=== PATIENT | female | born 1985 | race American Indian/Alaskan Native ===

== ENCOUNTER 2018-03-30 10:16 | Emergency (ER) | payer SELFPAY ==
[2018-03-30] MEDS ORDERED: NACL 0.9% 1000 ML 1,000 ML IV ONE (11:24)
[2018-03-30] MEDS ORDERED: VITAMIN B-1 100 MG, FOLVITE 1 MG, INFUVITE 10 ML in NACL 0.9% 1000 ML 1,000 ML IV ONE (11:24)
[2018-03-30] MEDS ORDERED: BENADRYL IV ONE (11:25)
[2018-03-30] MEDS ORDERED: REGLAN IV ONE (11:25)
[2018-03-30] MEDS ORDERED: DILAUDID IV ONE ×2 (11:25→14:45)
[2018-03-30] MEDS ORDERED: ZOFRAN IV ONE ×2 (11:25→14:45)
[2018-03-30] MEDS ORDERED: PEPCID IV ONE (11:25)
--- NOTE | 2018-03-30 11:46 | Emergency Department Report ---
ED Abdominal Pain HPI - General Chief Complaint: Abdominal Pain Stated Complaint: BACK/ABD PAIN Source: patient Mode of arrival: Wheelchair Limitations: No Limitations - History of Present Illness Initial Comments: 33-year-old female with past medical history of pancreatitis presents to the hospital complains of epigastric pain radiating to the back with nausea, vomiting, and by mouth intolerance. Some symptoms in the past with pancreatitis. Pain described as sharp, aching, rated 8/10 in intensity, intermittent, and worse with palpation. No alleviating symptoms. Patient states to have vomitus is yellow and denies hematemesis, coffee-ground emesis, diarrhea, melena, or fever. Patient sees drink alcohol daily up until 2 days ago. She denies current or previous history of alcohol withdrawal tremors or seizures. No previous abdominal surgeries reported. Last exacerbation of pancreatitis was 2 years ago. Patient drinks about 3 beers and a half a pint of liquor daily. She does not have a primary care doctor. Severity scale (0 -10): 10 - Related Data Previous Rx's Medication Instructions Recorded Last Taken Type HYDROcodone/ACETAMINOPHEN [[place] 1 each PO Q4-6H PRN #20 tablet 03/30/18 Unknown Rx 7.5-325 Tablet] Ondansetron [Zofran Odt] 4 mg PO Q8HR PRN #20 tab.rapdis 03/30/18 Unknown Rx Allergies Allergy/AdvReac Type Severity Reaction Status Date / Time No Known Allergies Allergy Unverified 03/30/18 10:35 ED Review of Systems ROS: Stated complaint: BACK/ABD PAIN Other details as noted in HPI Comment: All other systems reviewed and negative ED Past Medical Hx - Past Medical History Previous Medical History?: Yes Additional medical history: pancreatitis, uterine fibroids. alcohol abuse - Surgical History Past Surgical History?: No - Social History Smoking Status: Current Every Day Smoker Substance Use Type: Alcohol (daily alcohol use) - Medications Home Medications: Home Medications Medication Instructions Recorded Confirmed Last Taken Type HYDROcodone/ACETAMINOPHEN [[place] 1 each PO Q4-6H PRN #20 tablet 03/30/18 Unknown Rx 7.5-325 Tablet] Ondansetron [Zofran Odt] 4 mg PO Q8HR PRN #20 tab.rapdis 03/30/18 Unknown Rx ED Physical Exam - General Limitations: No Limitations - Other Other exam information: General: No limitations, patient is alert in no acute distress Head exam: Atraumatic, normocephalic Eyes exam: Mildly icteric sclerae ENT: Dry mucous membranes Neck exam: Normal inspection, full range of motion, no meningismus nontender Respiratory exam: Clear to auscultation bilateral, no wheezes, rales, crackles Cardiovascular: Normal rate and rhythm, normal heart sounds Abdomen: Soft, nondistended, epigastric tenderness, with normal bowel sounds, no rebound, or guarding Extremity: Full range of motion normal inspection no deformity Back: Normal Inspection, full range of motion, no tenderness Neurologic: Alert, oriented x3, cranial nerves intact, no motor or sensory deficit. No tremor Psychiatric: normal affect, normal mood Skin: Warm, dry, intact ED Course Vital Signs 03/30/18 03/30/18 10:32 11:31 Temperature 98.3 F 98.9 F Pulse Rate 90 89 Respiratory 16 18 Rate Blood Pressure 121/83 Blood Pressure 128/81 [Left] O2 Sat by Pulse 97 98 Oximetry - Reevaluation(s) Reevaluation #1: 03/30/18 16:24 After initial zofran pt stopped vomiting for a little while than began having further coffee ground emesis. Benadryl, Regaln, and Zofran ordred ED Medical Decision Making - Lab Data Result diagrams: 03/30/18 11:26 03/30/18 11:26 Lab Results 03/30/18 03/30/18 03/30/18 Range/Units 11:26 11:26 11:26 WBC 9.6 (4.5-11.0) K/mm3 RBC 4.50 (3.65-5.03) M/mm3 Hgb 13.0 (10.1-14.3) gm/dl Hct 38.7 (30.3-42.9) % MCV 86 (79-97) fl MCH 29 (28-32) pg MCHC 34 (30-34) % RDW 19.9 H (13.2-15.2) % Plt Count 358 (140-440) K/mm3 Lymph % (Auto) 18.0 (13.4-35.0) % [place] % (Auto) 9.6 H (0.0-7.3) % Eos % (Auto) 7.5 H (0.0-4.3) % Baso % (Auto) 0.3 (0.0-1.8) % Lymph # 1.7 (1.2-5.4) K/mm3 [place] # 0.9 H (0.0-0.8) K/mm3 Eos # 0.7 H (0.0-0.4) K/mm3 Baso # 0.0 (0.0-0.1) K/mm3 Seg Neutrophils % 64.6 (40.0-70.0) % Seg Neutrophils # 6.2 (1.8-7.7) K/mm3 Sodium 134 L (137-145) mmol/L Potassium 4.2 (3.6-5.0) mmol/L Chloride 93.7 L (98-107) mmol/L Carbon Dioxide 23 (22-30) mmol/L Anion Gap 22 mmol/L BUN 4 L (7-17) mg/dL Creatinine 0.5 L (0.7-1.2) mg/dL Estimated GFR > 60 ml/min BUN/Creatinine Ratio 8 % Glucose 77 (65-100) mg/dL Calcium 9.2 (8.4-10.2) mg/dL Magnesium (1.7-2.3) mg/dL Total Bilirubin 0.40 (0.1-1.2) mg/dL AST 23 (5-40) units/L ALT 20 (7-56) units/L Alkaline Phosphatase 91 (35-129) units/L Total Protein 7.9 (6.3-8.2) g/dL Albumin 4.2 (3.9-5) g/dL Albumin/Globulin Ratio 1.1 % Lipase 192 H (13-60) units/L HCG, Qual Negative (Negative) Urine Color (Yellow) Urine Turbidity (Clear) Urine pH (5.0-7.0) Ur Specific [place] (1.003-1.030) Urine Protein (Negative) mg/dL Urine Glucose (UA) (Negative) mg/dL Urine Ketones (Negative) mg/dL Urine Blood (Negative) Urine Nitrite (Negative) Ur Reducing Substances Urine Bilirubin (Negative) Urine Ictotest Urine Urobilinogen (<2.0) mg/dL Ur Leukocyte Esterase (Negative) Urine WBC (Auto) (0.0-6.0) /HPF Urine RBC (Auto) (0.0-6.0) /HPF U Epithel Cells (Auto) (0-13.0) /HPF Urine Bacteria (Auto) (Negative) /HPF Hyaline Casts /LPF Urine Mucus /HPF Urine Opiates Screen Urine Methadone Screen Ur Barbiturates Screen Ur Phencyclidine Scrn Ur Amphetamines Screen U Benzodiazepines Scrn Urine Cocaine Screen U Marijuana (THC) Screen Drugs of Abuse Note 03/30/18 03/30/18 03/30/18 Range/Units 11:26 13:28 13:28 WBC (4.5-11.0) K/mm3 RBC (3.65-5.03) M/mm3 Hgb (10.1-14.3) gm/dl Hct (30.3-42.9) % MCV (79-97) fl MCH (28-32) pg MCHC (30-34) % RDW (13.2-15.2) % Plt Count (140-440) K/mm3 Lymph % (Auto) (13.4-35.0) % [place] % (Auto) (0.0-7.3) % Eos % (Auto) (0.0-4.3) % Baso % (Auto) (0.0-1.8) % Lymph # (1.2-5.4) K/mm3 [place] # (0.0-0.8) K/mm3 Eos # (0.0-0.4) K/mm3 Baso # (0.0-0.1) K/mm3 Seg Neutrophils % (40.0-70.0) % Seg Neutrophils # (1.8-7.7) K/mm3 Sodium (137-145) mmol/L Potassium (3.6-5.0) mmol/L Chloride (98-107) mmol/L Carbon Dioxide (22-30) mmol/L Anion Gap mmol/L BUN (7-17) mg/dL Creatinine (0.7-1.2) mg/dL Estimated GFR ml/min BUN/Creatinine Ratio % Glucose (65-100) mg/dL Calcium (8.4-10.2) mg/dL Magnesium 2.00 (1.7-2.3) mg/dL Total Bilirubin (0.1-1.2) mg/dL AST (5-40) units/L ALT (7-56) units/L Alkaline Phosphatase (35-129) units/L Total Protein (6.3-8.2) g/dL Albumin (3.9-5) g/dL Albumin/Globulin Ratio % Lipase (13-60) units/L HCG, Qual (Negative) Urine Color Yellow (Yellow) Urine Turbidity Clear (Clear) Urine pH 6.0 (5.0-7.0) Ur Specific [place] 1.005 (1.003-1.030) Urine Protein <15 mg/dl (Negative) mg/dL Urine Glucose (UA) Neg (Negative) mg/dL Urine Ketones 20 (Negative) mg/dL Urine Blood Mod (Negative) Urine Nitrite Neg (Negative) Ur Reducing Substances Not Reportable Urine Bilirubin Neg (Negative) Urine Ictotest Not Reportable Urine Urobilinogen < 2.0 (<2.0) mg/dL Ur Leukocyte Esterase Neg (Negative) Urine WBC (Auto) 1.0 (0.0-6.0) /HPF Urine RBC (Auto) 1.0 (0.0-6.0) /HPF U Epithel Cells (Auto) 1.0 (0-13.0) /HPF Urine Bacteria (Auto) 1+ (Negative) /HPF Hyaline Casts 1 /LPF Urine Mucus Few /HPF Urine Opiates Screen Presumptive negative Urine Methadone Screen Presumptive negative Ur Barbiturates Screen Presumptive negative Ur Phencyclidine Scrn Presumptive negative Ur Amphetamines Screen Presumptive negative U Benzodiazepines Scrn Presumptive negative Urine Cocaine Screen Presumptive negative U Marijuana (THC) Screen Presumptive negative Drugs of Abuse Note Disclamer - EKG Data -: EKG Interpreted by Mt EKG shows normal: sinus rhythm, axis (qrs -54), QRS complexes (qrsd 109), ST-T waves (no stemi/ mulitple PVC's every 3rd beat) Rate: tachycardia (120) - Radiology Data Radiology results: report reviewed CT ABDOMEN PELVIS WITH CONTRAST: HISTORY: Epigastric pain, pancreatitis. COMPARISON: none. TECHNIQUE: Helical CT in 1.25mm intervals following IV contrast. Sagittal and coronal reconstructions. FINDINGS: Lung bases: Normal. Liver: Normal. Biliary system: Normal. Pancreas: There are scattered pancreatic calcifications consistent with chronic pancreatitis. The pancreas is also edematous with surrounding fluid consistent with superimposed acute pancreatitis. There is no obvious pancreatic mass or pseudocyst. Spleen: Normal. Kidneys/ureters/bladder: Normal. Adrenal glands: Normal. Aorta: Normal. Intestines: Within normal limits given no oral contrast was administered. Appendix: Normal. Pelvic viscera: The uterus and left adnexa are unremarkable. In the right adnexa, a 5.5 x 4.1 cm fat-containing right ovarian mass is identified consistent with a dermoid. Ascites: Trace pelvic ascites. Adenopathy: None. Musculoskeletal: Normal. IMPRESSION: Acute on chronic pancreatitis. Right ovarian dermoid as described. - Medical Decision Making acute on chronic pancreatitis pt received Dilaudid, Zofran, Reglan, Pepcid, Benadryl, normal saline, and banana bag with improvement in symptoms Patient offered admission but states she feels well enough to attempt to be treated at home. I agree that patient's pancreatitis exacerbation is mild at this time and she is tolerating by mouth prior to discharge control pain and therefore will be discharged on medications for symptomatic treatment. Patient advised to not drink alcohol because this may exacerbate her pain. Patient has not had alcohol in 2 days and does not have any signs of alcohol withdrawal tremors, tachycardia, or hypertension. I believe she has low risk for alcohol withdrawal side effects. - Differential Diagnosis pancreatitis, gastritis, etoh abuse, bilary colic Critical Care Time: No Critical care attestation.: If time is entered above; I have spent that time in minutes in the direct care of this critically ill patient, excluding procedure time. ED Disposition Clinical Impression: Acute on chronic pancreatitis, Alcohol abuse, Dermoid cyst of right ovary Disposition: DC-01 TO HOME OR SELFCARE Is pt being admited?: No Does the pt Need Aspirin: No Condition: Stable Instructions: Pancreatitis (ED), Abuse of Alcohol (ED), Ovarian Cyst (ED) Additional Instructions: Use the playnik monique downloaded on your phone to make your medications more affordable. Do not drink any alcohol because this will worsen your symptoms. Return to the hospital if symptoms worsen as indicated by her discharge instructions. Prescriptions: HYDROcodone/ACETAMINOPHEN [[place] 7.5-325 Tablet] 1 each PO Q4-6H PRN #20 tablet PRN Reason: Pain Ondansetron [Zofran Odt] 4 mg PO Q8HR PRN #20 tab.rapdis PRN Reason: Nausea And Vomiting Referrals: YAAKOV TODD MD [Staff Physician] - 3-5 Days (Primary care doctor) [facility] [Provider Group] - 3-5 Days (primary care clinic) JEANNE COLIN MD [Staff Physician] - 3-5 Days ([employer] doctor ) Time of Disposition: 16:33
[2018-03-30 11:47] LABS: Basophils % (Auto) 0.3 % (0.0-1.8); Eosinophils # (Auto) 0.7 K/mm3 (0.0-0.4); Eosinophils % (Auto) 7.5 % (0.0-4.3); Hematocrit 38.7 % (30.3-42.9); Lymphocytes # (Auto) 1.7 K/mm3 (1.2-5.4); Mean Corpuscular HGB Conc 34 % (30-34); Mean Corpuscular Hemoglobin 29 pg (28-32); Mean Corpuscular Volume 86 fl (79-97); Monocytes # (Auto) 0.9 K/mm3 (0.0-0.8); Monocytes % (Auto) 9.6 % (0.0-7.3); Platelet Count 358 K/mm3 (140-440); Red Cell Distribution Width 19.9 % (13.2-15.2)
[2018-03-30 11:56] LABS: Alanine Aminotransferase 20 units/L (7-56); Albumin 4.2 g/dL (3.9-5); BUN/Creatinine Ratio 8; Blood Urea Nitrogen 4 mg/dL (7-17); Calcium 9.2 mg/dL (8.4-10.2); Hemolysis Index 4; Lipase 192 units/L (13-60)
[2018-03-30 14:09] LABS: Bacteria,Urine 1+ /HPF (Negative); Mucus,Urine FEW /HPF
--- NOTE | 2018-03-30 14:16 | Cat Scan Report ---
CT ABDOMEN PELVIS WITH CONTRAST: HISTORY: Epigastric pain, pancreatitis. COMPARISON: none. TECHNIQUE: Helical CT in 1.25mm intervals following IV contrast. Sagittal and coronal reconstructions. FINDINGS: Lung bases: Normal. Liver: Normal. Biliary system: Normal. Pancreas: There are scattered pancreatic calcifications consistent with chronic pancreatitis. The pancreas is also edematous with surrounding fluid consistent with superimposed acute pancreatitis. There is no obvious pancreatic mass or pseudocyst. Spleen: Normal. Kidneys/ureters/bladder: Normal. Adrenal glands: Normal. Aorta: Normal. Intestines: Within normal limits given no oral contrast was administered. Appendix: Normal. Pelvic viscera: The uterus and left adnexa are unremarkable. In the right adnexa, a 5.5 x 4.1 cm fat-containing right ovarian mass is identified consistent with a dermoid. Ascites: Trace pelvic ascites. Adenopathy: None. Musculoskeletal: Normal. IMPRESSION: Acute on chronic pancreatitis. Right ovarian dermoid as described.
[2018-03-30 14:18] LABS: Bilirubin,Urine NEG (Negative); Blood,Urine MOD (Negative); Color,Urine Yellow (Yellow); Hyaline Casts,Urine 1 /LPF; Protein,Urine <15 mg/dL mg/dL (Negative); Urobilinogen,Urine < 2.0 mg/dL (<2.0)
[2018-03-30 14:23] LABS: Amphetamine Screen,Urine PRESUMPTIVE NEGATIVE; Benzodiazepines Screen,Urine PRESUMPTIVE NEGATIVE; Cannabinoid Screen,Urine PRESUMPTIVE NEGATIVE; Cocaine Screen,Urine PRESUMPTIVE NEGATIVE; Methadone Screen,Urine PRESUMPTIVE NEGATIVE; Opiate Screen,Urine PRESUMPTIVE NEGATIVE
[2018-03-30 16:26] VITALS: BP 101/64
== END 2018-03-30 17:01 | disposition home or self-care (01) ==
LOC: ED 10:16
DX: K86.1 Other chronic pancreatitis (principal); F10.10 Alcohol abuse, uncomplicated; D27.0 Benign neoplasm of right ovary; F17.200 Nicotine dependence, unspecified, uncomplicated
CPT/HCPCS: 36415; 74177; 80053; 80307; 81001; 83690; 83735; 84703; 85025; 96365; 96366; 96375; 96376; 99284; J1170; J1200; J2405; J2765; J3411; J7030; Q9967

== ENCOUNTER 2018-07-02 04:04 | Emergency (ER) | payer SELFPAY ==
[2018-07-02 05:11] LABS: Basophils % (Auto) 0.5 % (0.0-1.8); Eosinophils # (Auto) 0.5 K/mm3 (0.0-0.4); Eosinophils % (Auto) 7.5 % (0.0-4.3); Hematocrit 36.6 % (30.3-42.9); Hemoglobin 12.3 gm/dl (10.1-14.3); Lymphocytes # (Auto) 1.5 K/mm3 (1.2-5.4); Mean Corpuscular HGB Conc 34 % (30-34); Mean Corpuscular Hemoglobin 28 pg (28-32); Mean Corpuscular Volume 83 fl (79-97); Platelet Count 281 K/mm3 (140-440); Red Blood Count 4.39 M/mm3 (3.65-5.03); Red Cell Distribution Width 18.3 % (13.2-15.2)
[2018-07-02 05:26] LABS: Alanine Aminotransferase 21 units/L (7-56); Albumin 4.2 g/dL (3.9-5); BUN/Creatinine Ratio 8; Blood Urea Nitrogen 4 mg/dL (7-17); Calcium 9.3 mg/dL (8.4-10.2); Hemolysis Index 11; Lipase 260 units/L (13-60)
[2018-07-02 05:37] LABS: Bilirubin,Urine NEG (Negative); Blood,Urine MOD (Negative); Color,Urine Yellow (Yellow); HCG Qualitative,Urine Negative (Negative); Mucus,Urine FEW /HPF
[2018-07-02] MEDS ORDERED: ZOFRAN ONE (08:59)
[2018-07-02] MEDS ORDERED: NACL 0.9% 500 ML 500 ML ONE (09:00)
[2018-07-02] MEDS ORDERED: NACL 0.9% 1000 ML 1,000 ML IV ONE (09:38)
[2018-07-02] MEDS ORDERED: ZOFRAN IV ONE (09:38)
[2018-07-02] MEDS ORDERED: MORPHINE IV ONE (09:38)
[2018-07-02] MEDS ORDERED: ZOFRAN ODT PO ONE (12:22)
[2018-07-02] MEDS ORDERED: NORCO 5/325 PO ONE (12:24)
--- NOTE | 2018-07-02 12:35 | Emergency Department Report ---
ED Abdominal Pain HPI - General Chief Complaint: Abdominal Pain Stated Complaint: ABDOMINAL PAIN Time Seen by Provider: 07/02/18 09:37 Source: patient Mode of arrival: Ambulatory Limitations: No Limitations - History of Present Illness Initial Comments: 33-year-old female with a history of chronic pancreatitis. She states she has recurrent symptoms. She denies alcohol consumption. She complains of epigastric discomfort which does radiate to the back. It's been associated with nausea and occasional vomiting. She's had no signs of GI bleeding. She denies fever and breathing difficulty. Pain is moderate in intensity. She states it is just like her previous flareups of pancreatitis. MD Complaint: abdominal pain -: Gradual, days(s) Location: epigastric Radiation: back Severity: moderate Quality: aching Consistency: intermittent Improves With: nothing Worsens With: eating Context: other Associated Symptoms: denies other symptoms, nausea, vomiting - Related Data Previous Rx's Medication Instructions Recorded Last Taken Type HYDROcodone/ACETAMINOPHEN [[place] 1 each PO Q4-6H PRN #20 tablet 03/30/18 Unknown Rx 7.5-325 Tablet] HYDROcodone/APAP 5-325 [[place] 1 each PO Q6HR PRN #10 tablet 07/02/18 Unknown Rx 5/325] Ondansetron [Zofran ODT TAB] 4 mg PO Q8HR PRN #10 tab.rapdis 07/02/18 Unknown Rx Allergies Allergy/AdvReac Type Severity Reaction Status Date / Time No Known Allergies Allergy Unverified 03/30/18 10:35 ED Review of Systems ROS: Stated complaint: ABDOMINAL PAIN Other details as noted in HPI Constitutional: denies: chills, fever Eyes: denies: eye pain, eye discharge, vision change ENT: denies: ear pain, throat pain Respiratory: denies: cough, shortness of breath, wheezing Cardiovascular: denies: chest pain, palpitations Endocrine: no symptoms reported Gastrointestinal: abdominal pain, nausea, vomiting. denies: diarrhea Genitourinary: denies: urgency, dysuria, discharge Musculoskeletal: denies: back pain, joint swelling, arthralgia Skin: denies: rash, lesions Neurological: denies: headache, weakness, paresthesias Psychiatric: denies: anxiety, depression Hematological/Lymphatic: denies: easy bleeding, easy bruising ED Past Medical Hx - Past Medical History Previous Medical History?: Yes Additional medical history: pancreatitis, uterine fibroids. alcohol abuse - Surgical History Past Surgical History?: No - Social History Smoking Status: Never Smoker Substance Use Type: Alcohol - Medications Home Medications: Home Medications Medication Instructions Recorded Confirmed Last Taken Type HYDROcodone/ACETAMINOPHEN [[place] 1 each PO Q4-6H PRN #20 tablet 03/30/18 Unknown Rx 7.5-325 Tablet] HYDROcodone/APAP 5-325 [[place] 1 each PO Q6HR PRN #10 tablet 07/02/18 Unknown Rx 5/325] Ondansetron [Zofran ODT TAB] 4 mg PO Q8HR PRN #10 tab.rapdis 07/02/18 Unknown Rx ED Physical Exam - General Limitations: No Limitations General appearance: alert, in no apparent distress - Head Head exam: Present: atraumatic, normocephalic - Eye Eye exam: Present: normal appearance. Absent: scleral icterus - ENT ENT exam: Present: mucous membranes moist - Neck Neck exam: Present: normal inspection. Absent: meningismus - Respiratory Respiratory exam: Present: normal lung sounds bilaterally. Absent: respiratory distress - Cardiovascular Cardiovascular Exam: Present: regular rate, normal rhythm. Absent: systolic murmur, diastolic murmur, rubs, gallop - GI/Abdominal GI/Abdominal exam: Present: soft, normal bowel sounds, other (I found the patient's abdominal exam to be quite benign.). Absent: distended, tenderness, guarding, rebound, rigid, organomegaly, mass, bruit, pulsatile mass - Extremities Exam Extremities exam: Present: normal inspection, full ROM. Absent: calf tenderness - Back Exam Back exam: Present: normal inspection - Neurological Exam Neurological exam: Present: alert, oriented X3, CN II-XII intact. Absent: motor sensory deficit - Psychiatric Psychiatric exam: Present: normal affect, normal mood - Skin Skin exam: Present: warm, dry, intact, normal color. Absent: rash ED Course Vital Signs 07/02/18 07/02/18 07/02/18 04:23 08:15 09:52 Temperature 98.1 F Pulse Rate 89 85 Respiratory 17 15 18 Rate Blood Pressure 114/85 Blood Pressure 119/73 [Right] O2 Sat by Pulse 99 98 Oximetry - Reevaluation(s) Reevaluation #1: Patient is given analgesia and IV fluids. She was able tolerate by mouth. She was given Zofran ODT and oral analgesia. She is appropriate for outpatient referral. She will be referred to [facility]. She will be given appropriate return criteria. 07/02/18 12:33 ED Medical Decision Making - Lab Data Result diagrams: 07/02/18 04:35 07/02/18 04:35 Laboratory Results - last 24 hr 07/02/18 07/02/18 07/02/18 04:35 04:35 Unknown WBC 7.3 RBC 4.39 Hgb 12.3 Hct 36.6 MCV 83 MCH 28 MCHC 34 RDW 18.3 H Plt Count 281 Lymph % (Auto) 21.0 [place] % (Auto) 14.0 H Eos % (Auto) 7.5 H Baso % (Auto) 0.5 Lymph # 1.5 [place] # 1.0 H Eos # 0.5 H Baso # 0.0 Seg Neutrophils % 57.0 Seg Neutrophils # 4.1 Sodium 133 L Potassium 3.9 Chloride 93.7 L Carbon Dioxide 23 Anion Gap 20 BUN 4 L Creatinine 0.5 L Estimated GFR > 60 BUN/Creatinine Ratio 8 Glucose 97 Calcium 9.3 Total Bilirubin 0.40 AST 22 ALT 21 Alkaline Phosphatase 86 Total Protein 7.2 Albumin 4.2 Albumin/Globulin Ratio 1.4 Lipase 260 H Urine Color Yellow Urine Turbidity Slightly-cloudy Urine pH 5.0 Ur Specific [place] 1.018 Urine Protein 30 mg/dl Urine Glucose (UA) Neg Urine Ketones 20 Urine Blood Mod Urine Nitrite Neg Ur Reducing Substances Not Reportable Urine Bilirubin Neg Urine Ictotest Not Reportable Urine Urobilinogen 2.0 Ur Leukocyte Esterase Sm Urine WBC (Auto) 2.0 Urine RBC (Auto) 2.0 U Epithel Cells (Auto) 8.0 Urine Mucus Few Urine HCG, Qual Negative Critical care attestation.: If time is entered above; I have spent that time in minutes in the direct care of this critically ill patient, excluding procedure time. ED Disposition Clinical Impression: Pancreatitis Qualifiers: Chronicity: acute Pancreatitis type: unspecified pancreatitis type Acute pancreatitis complication: unspecified Qualified Code(s): K85.90 - Acute pancreatitis without necrosis or infection, unspecified Disposition: DC-01 TO HOME OR SELFCARE Is pt being admited?: No Does the pt Need Aspirin: No Condition: Stable Instructions: Abdominal Pain (ED), Pancreatitis (ED) Additional Instructions: Clear fluids and advance as tolerated. Follow-up with [facility]. Prescriptions: HYDROcodone/APAP 5-325 [[place] 5/325] 1 each PO Q6HR PRN #10 tablet PRN Reason: Pain Ondansetron [Zofran ODT TAB] 4 mg PO Q8HR PRN #10 tab.rapdis PRN Reason: Nausea And Vomiting Referrals: PRIMARY CARE, [Primary Care Provider] - 3-5 Days [facility] [Provider Group] - 3-[address] [facility] [Provider Group] - 3-5 Days Time of Disposition: 12:35
[2018-07-02 12:43] VITALS: BP 133/95
== END 2018-07-02 13:00 | disposition home or self-care (01) ==
LOC: ED 04:04
DX: K85.90 Acute pancreatitis without necrosis or infection, unspecified (principal)
CPT/HCPCS: 36415; 80053; 81001; 81025; 83690; 85025; 96361; 96374; 96375; 99283; J2270; J2405; J7040; Q0162

== ENCOUNTER 2018-07-07 06:30 | Emergency (ER) | payer SELFPAY ==
[2018-07-07] MEDS ORDERED: NACL 0.9% 1000 ML 1,000 ML IV ONE ×3 (08:55→09:40)
[2018-07-07 09:17] LABS: Hematocrit 43.1 % (30.3-42.9); Hemoglobin 14.7 gm/dl (10.1-14.3); Mean Corpuscular HGB Conc 34 % (30-34); Mean Corpuscular Hemoglobin 28 pg (28-32); Mean Corpuscular Volume 83 fl (79-97); Platelet Count 362 K/mm3 (140-440); Red Blood Count 5.23 M/mm3 (3.65-5.03)
[2018-07-07 09:39] LABS: Albumin 4.5 g/dL (3.9-5); BUN/Creatinine Ratio 18; Blood Urea Nitrogen 11 mg/dL (7-17); Calcium 10.9 mg/dL (8.4-10.2); Hemolysis Index 145
[2018-07-07] MEDS ORDERED: PEPCID IV ONE (09:40)
[2018-07-07] MEDS ORDERED: TORADOL IV ONE (09:40)
[2018-07-07] MEDS ORDERED: ZOFRAN IV ONE (09:40)
--- NOTE | 2018-07-07 09:42 | Emergency Department Report ---
Blank Doc - Documentation Documentation: Patient is a 33-year-old female with a past medical history of pancreatitis who presented with continued nausea vomiting. Patient states she was here 5 days ago for same. Patient states she also is still not had a bowel movement since she left the hospital. Patient is only complaining of some epigastric discomfort radiation to her back. Patient denies any fevers or chills at this time. A [place] physical exam patient has some mild tenderness to palpation of the epigastrium but otherwise has normal bowel sounds no pain in the left lower quadrant and no fullness in the left lower quadrant. Patient will have laboratory studies rechecked including a lipase the patient will be hydrated and given meds for symptomatic relief. Patient will be reassessed.
[2018-07-07 11:05] LABS: Alanine Aminotransferase 19 units/L (7-56)
--- NOTE | 2018-07-07 11:20 | Emergency Department Report ---
Vomiting/Diarrhea - HPI Chief Complaint: Nausea/Vomiting/Diarrhea Stated Complaint: VOMITING Time Seen by Provider: 07/07/18 09:35 Duration: 5 Days Severity: moderate Nausea/Vomiting Severity: Moderate Diarrhea Severity: None Pain Severity: None Symptoms: Yes Able to Tolerate Fluids, No Watery Diarrhea, No Bloody diarrhea, No Fever, No Recent Unusual Foods, No Recent Untreated Water, No Recent use of Antibiotics, No Family w/ Similar Symptoms, No Contacts w/ Similar Symptoms, No Rash, No Hematuria, No Recent URI Symptoms Other History: This is a 33-year-old -Citizen Of The [place] female who presents with nausea and vomiting for 5 days. Patient states she was discharged last Wednesday from this emergency room with nausea medication which is not improved in symptoms. Patient states she continues to have nausea and vomiting without abdominal pain. Patient reports last bowel movement a few days ago. She was referred to [facility] medical clinic but unable to follow up because she does not have insurance. Patient denies abdominal pain, diarrhea, fever, chest pain , or shortness of breath. ED Review of Systems ROS: Stated complaint: VOMITING Other details as noted in HPI Constitutional: denies: chills, fever ENT: denies: ear pain, throat pain Respiratory: denies: cough, shortness of breath, wheezing Cardiovascular: as per HPI Gastrointestinal: nausea, vomiting. denies: abdominal pain, diarrhea Skin: denies: rash, lesions Neurological: denies: headache, weakness, paresthesias Psychiatric: denies: anxiety, depression ED Past Medical Hx - Past Medical History Previous Medical History?: Yes Additional medical history: pancreatitis, uterine fibroids. alcohol abuse - Surgical History Past Surgical History?: No - Social History Smoking Status: Current Every Day Smoker Substance Use Type: Alcohol - Medications Home Medications: Home Medications Medication Instructions Recorded Confirmed Last Taken Type HYDROcodone/ACETAMINOPHEN [[place]te 1 each PO Q4-6H PRN #20 tablet 03/30/18 Unknown Rx 7.5-325 Tablet] HYDROcodone/APAP 5-325 [Jul[place]te 1 each PO Q6HR PRN #10 tablet 07/02/18 Unknown Rx 5/325] Ondansetron [Zofran ODT TAB] 4 mg PO Q8HR PRN #10 tab.rapdis 07/02/18 Unknown Rx Polyethylene Glycol 3350 [Miralax 17 gm PO BID #10 packet 07/07/18 Unknown Rx 3350] Vomiting Diarrhea Exam - Exam General: Vital signs noted. No distress. Alert and acting appropriately. HEENT: Yes Moist Mucous Membranes, No Pharyngeal Erythema, No Pharyngeal Exudates, No Rhinorrhea, No Conjuctival Injection, No Frontal Tenderness, No Maxillary Tenderness Neck: No Adenopathy, No Rigidity Lungs: Yes Clear Lung Sounds, Yes Good Air Exchange, No Wheezes, No Stridor, No Cough, No Nasal Flaring, No Retractions, No Use of Accessory Muscles Heart exam: Regular: Yes, Murmur: No, Tachycardia: No Abdomen: Tenderness: Yes (epigastric), Peritoneal Signs: No, Distention: No, Hyperactive Bowel sounds: No Skin exam: Rash: No, Edema: No, Normal turgor: Yes Neurologic: Alert and oriented, no deficits. Musculoskeletal: Unremarkable. ED Course Vital Signs 07/07/18 06:38 Temperature 99.4 F Pulse Rate 117 H Respiratory 20 Rate Blood Pressure 122/93 O2 Sat by Pulse 98 Oximetry ED Medical Decision Making - Lab Data Result diagrams: 07/07/18 09:08 07/07/18 09:05 Lab Results 07/07/18 07/07/18 07/07/18 Range/Units 09:05 09:05 09:08 WBC 9.3 (4.5-11.0) K/mm3 RBC 5.23 H (3.65-5.03) M/mm3 Hgb 14.7 H (10.1-14.3) gm/dl Hct 43.1 H (30.3-42.9) % MCV 83 (79-97) fl MCH 28 (28-32) pg MCHC 34 (30-34) % RDW 18.0 H (13.2-15.2) % Plt Count 362 (140-440) K/mm3 [place] % (Auto) Support Manager Add Manual Diff Complete Total Counted 100 Seg Neuts % (Manual) 63.0 (40.0-70.0) % Band Neutrophils % 0 % Lymphocytes % (Manual) 19.0 (13.4-35.0) % Reactive Lymphs % (Man) 0 % Monocytes % (Manual) 11.0 H (0.0-7.3) % Eosinophils % (Manual) 6.0 H (0.0-4.3) % Basophils % (Manual) 1.0 (0.0-1.8) % Metamyelocytes % 0 % Myelocytes % 0 % Promyelocytes % 0 % Blast Cells % 0 % Nucleated RBC % Not Reportable Seg Neutrophils # Man 5.9 (1.8-7.7) K/mm3 Band Neutrophils # 0.0 K/mm3 Lymphocytes # (Manual) 1.8 (1.2-5.4) K/mm3 Abs React Lymphs (Man) 0.0 K/mm3 Monocytes # (Manual) 1.0 H (0.0-0.8) K/mm3 Eosinophils # (Manual) 0.6 H (0.0-0.4) K/mm3 Basophils # (Manual) 0.1 (0.0-0.1) K/mm3 Metamyelocytes # 0.0 K/mm3 Myelocytes # 0.0 K/mm3 Promyelocytes # 0.0 K/mm3 Blast Cells # 0.0 K/mm3 WBC Morphology Not Reportable Hypersegmented Neuts Not Reportable Hyposegmented Neuts Not Reportable Hypogranular Neuts Not Reportable Smudge Cells Not Reportable Toxic Granulation Not Reportable Toxic Vacuolation Not Reportable Dohle Bodies Not Reportable Pelger-Huet Anomaly Not Reportable Afshin Rods Not Reportable Platelet Estimate Appears normal Clumped Platelets Not Reportable Plt Clumps, EDTA Not Reportable Large Platelets Not Reportable Giant Platelets Not Reportable Platelet Satelliting Not Reportable Plt Morphology Comment Not Reportable RBC Morphology Not Reportable Dimorphic RBCs Not Reportable Polychromasia Not Reportable Hypochromasia Not Reportable Poikilocytosis 1+ Anisocytosis 1+ Microcytosis Rare Macrocytosis Not Reportable Spherocytes Not Reportable Pappenheimer Bodies Not Reportable Sickle Cells Not Reportable Target Cells 1+ Tear Drop Cells Not Reportable Ovalocytes Not Reportable Helmet Cells Not Reportable [place] Bodies Not Reportable [place] Rings Not Reportable [place] Cells Not Reportable Bite Cells Not Reportable Crenated Cell Not Reportable Elliptocytes Not Reportable Acanthocytes (Spur) Not Reportable Rouleaux Not Reportable Hemoglobin C Crystals Not Reportable Schistocytes Not Reportable Malaria parasites Not Reportable Miguel Bodies Not Reportable Hem Pathologist Commnt No Sodium 132 L (137-145) mmol/L Potassium 4.5 (3.6-5.0) mmol/L Chloride 93.8 L (98-107) mmol/L Carbon Dioxide 20 L (22-30) mmol/L Anion Gap 23 mmol/L BUN 11 (7-17) mg/dL Creatinine 0.6 L (0.7-1.2) mg/dL Estimated GFR > 60 ml/min BUN/Creatinine Ratio 18 % Glucose 102 H (65-100) mg/dL Calcium 10.9 H (8.4-10.2) mg/dL Total Bilirubin 0.60 (0.1-1.2) mg/dL AST 29 (5-40) units/L ALT 19 (7-56) units/L Alkaline Phosphatase 71 (35-129) units/L Total Protein 8.8 H (6.3-8.2) g/dL Albumin 4.5 (3.9-5) g/dL Albumin/Globulin Ratio 1.0 % Lipase 153 H (13-60) units/L Urine Color (Yellow) Urine Turbidity (Clear) Urine pH (5.0-7.0) Ur Specific [place] (1.003-1.030) Urine Protein (Negative) mg/dL Urine Glucose (UA) (Negative) mg/dL Urine Ketones (Negative) mg/dL Urine Blood (Negative) Urine Nitrite (Negative) Ur Reducing Substances Urine Bilirubin (Negative) Urine Ictotest Urine Urobilinogen (<2.0) mg/dL Ur Leukocyte Esterase (Negative) Urine WBC (Auto) (0.0-6.0) /HPF Urine RBC (Auto) (0.0-6.0) /HPF U Epithel Cells (Auto) (0-13.0) /HPF Urine Bacteria (Auto) (Negative) /HPF Hyaline Casts /LPF Urine Mucus /HPF 07/07/ Range/Units 10:55 WBC (4.5-11.0) K/mm3 RBC (3.65-5.03) M/mm3 Hgb (10.1-14.3) gm/dl Hct (30.3-42.9) % MCV (79-97) fl MCH (28-32) pg MCHC (30-34) % RDW (13.2-15.2) % Plt Count (140-440) K/mm3 [place] % (Auto) Add Manual Diff Total Counted Seg Neuts % (Manual) (40.0-70.0) % Band Neutrophils % % Lymphocytes % (Manual) (13.4-35.0) % Reactive Lymphs % (Man) % Monocytes % (Manual) (0.0-7.3) % Eosinophils % (Manual) (0.0-4.3) % Basophils % (Manual) (0.0-1.8) % Metamyelocytes % % Myelocytes % % Promyelocytes % % Blast Cells % % Nucleated RBC % Seg Neutrophils # Man (1.8-7.7) K/mm3 Band Neutrophils # K/mm3 Lymphocytes # (Manual) (1.2-5.4) K/mm3 Abs React Lymphs (Man) K/mm3 Monocytes # (Manual) (0.0-0.8) K/mm3 Eosinophils # (Manual) (0.0-0.4) K/mm3 Basophils # (Manual) (0.0-0.1) K/mm3 Metamyelocytes # K/mm3 Myelocytes # K/mm3 Promyelocytes # K/mm3 Blast Cells # K/mm3 WBC Morphology Hypersegmented Neuts Hyposegmented Neuts Hypogranular Neuts Smudge Cells Toxic Granulation Toxic Vacuolation Dohle Bodies Pelger-Huet Anomaly Afshin Rods Platelet Estimate Clumped Platelets Plt Clumps, EDTA Large Platelets Giant Platelets Platelet Satelliting Plt Morphology Comment RBC Morphology Dimorphic RBCs Polychromasia Hypochromasia Poikilocytosis Anisocytosis Microcytosis Macrocytosis Spherocytes Pappenheimer Bodies Sickle Cells Target Cells Tear Drop Cells Ovalocytes Helmet Cells [place] Bodies [place] Rings [place] Cells Bite Cells Crenated Cell Elliptocytes Acanthocytes (Spur) Rouleaux Hemoglobin C Crystals Schistocytes Malaria parasites Miguel Bodies Hem Pathologist Commnt Sodium (137-145) mmol/L Potassium (3.6-5.0) mmol/L Chloride (98-107) mmol/L Carbon Dioxide (22-30) mmol/L Anion Gap mmol/L BUN (7-17) mg/dL Creatinine (0.7-1.2) mg/dL Estimated GFR ml/min BUN/Creatinine Ratio % Glucose (65-100) mg/dL Calcium (8.4-10.2) mg/dL Total Bilirubin (0.1-1.2) mg/dL AST (5-40) units/L ALT (7-56) units/L Alkaline Phosphatase (35-129) units/L Total Protein (6.3-8.2) g/dL Albumin (3.9-5) g/dL Albumin/Globulin Ratio % Lipase (13-60) units/L Urine Color Yellow (Yellow) Urine Turbidity Slightly-cloudy (Clear) Urine pH 5.0 (5.0-7.0) Ur Specific [place] 1.015 (1.003-1.030) Urine Protein 30 mg/dl (Negative) mg/dL Urine Glucose (UA) Neg (Negative) mg/dL Urine Ketones 20 (Negative) mg/dL Urine Blood Mod (Negative) Urine Nitrite Neg (Negative) Ur Reducing Substances Not Reportable Urine Bilirubin Neg (Negative) Urine Ictotest Not Reportable Urine Urobilinogen 2.0 (<2.0) mg/dL Ur Leukocyte Esterase Sm (Negative) Urine WBC (Auto) 8.0 H (0.0-6.0) /HPF Urine RBC (Auto) 5.0 (0.0-6.0) /HPF U Epithel Cells (Auto) 3.0 (0-13.0) /HPF Urine Bacteria (Auto) 1+ (Negative) /HPF Hyaline Casts 17 /LPF Urine Mucus Few /HPF - Medical Decision Making Patient was examined by me and Dr. West in the emergency room. Vitals are normal and patient is in no acute distress. Labs were obtained. Lipase slightly elevated but lower than 07/02/2018 visit. Patient has chronic pancreatitis. Patient informed of results. Start MiraLAX for constipation. Encouraged to increase fluid intake. Plan discussed with patient to discharge home and treat outpatient. Referral to gastroenterology for continuous of care. Patient discharged home in stable condition. Follow up with PCP at [facility] in 2-3 days. Critical care attestation.: If time is entered above; I have spent that time in minutes in the direct care of this critically ill patient, excluding procedure time. ED Disposition Clinical Impression: Nausea and vomiting in adult Pancreatitis Qualifiers: Chronicity: chronic Pancreatitis type: alcohol induced Qualified Code(s): K86.0 - Alcohol-induced chronic pancreatitis Constipation Qualifiers: Constipation type: slow transit constipation Qualified Code(s): K59.01 - Slow transit constipation Disposition: - TO HOME OR SELFCARE Is pt being admited?: No Does the pt Need Aspirin: No Condition: Stable Instructions: Pancreatitis (ED) Additional Instructions: Clear fluids and advance as tolerated. Follow-up with [facility] and [place] gastroenterology. Prescriptions: Polyethylene Glycol 3350 [Miralax 3350] 17 gm PO BID #10 packet Referrals: [facility] [Provider Group] - 3-5 Days [facility] [Outside] - 3-[address] [facility] [Outside] - 3-5 Days Forms: Work/School Release Form(ED) Time of Disposition: 12:31 Print Language: GERMAN
[2018-07-07 11:24] LABS: Bacteria,Urine 1+ /HPF (Negative); Mucus,Urine FEW /HPF
[2018-07-07 11:41] LABS: Bilirubin,Urine NEG (Negative); Blood,Urine MOD (Negative); Color,Urine Yellow (Yellow); Hyaline Casts,Urine 17 /LPF
[2018-07-07 11:56] LABS: Total Cells Counted 100
[2018-07-07 11:57] LABS: Anisocytosis 1+; Poikilocytosis 1+
[2018-07-07 11:58] LABS: Target Cells 1+
[2018-07-07 12:43] VITALS: BP 130/90
== END 2018-07-07 12:50 | disposition home or self-care (01) ==
LOC: ED 06:30
DX: K86.0 Alcohol-induced chronic pancreatitis (principal); K59.01 Slow transit constipation; D25.9 Leiomyoma of uterus, unspecified; F17.200 Nicotine dependence, unspecified, uncomplicated
CPT/HCPCS: 36415; 80053; 81001; 83690; 85007; 85025; 96361; 96374; 96375; 99283; J1885; J2405; J7030

== ENCOUNTER 2018-07-22 20:40 | Inpatient (IN) | payer SELFPAY ==
[2018-07-22] MEDS ORDERED: NACL 0.9% 1000 ML 1,000 ML IV ONE ×3 (21:57→23:44)
[2018-07-22 22:15] LABS: Basophils # (Auto) 0.1 K/mm3 (0.0-0.1); Basophils % (Auto) 1.1 % (0.0-1.8); Eosinophils # (Auto) 0.6 K/mm3 (0.0-0.4); Eosinophils % (Auto) 8.5 % (0.0-4.3); Hematocrit 39.9 % (30.3-42.9); Hemoglobin 13.1 gm/dl (10.1-14.3); Lymphocytes # (Auto) 1.9 K/mm3 (1.2-5.4); Lymphocytes % (Auto) 26.6 % (13.4-35.0); Mean Corpuscular HGB Conc 33 % (30-34); Mean Corpuscular Hemoglobin 28 pg (28-32); Mean Corpuscular Volume 84 fl (79-97); Monocytes # (Auto) 0.7 K/mm3 (0.0-0.8); Monocytes % (Auto) 9.8 % (0.0-7.3); Platelet Count 491 K/mm3 (140-440); Red Blood Count 4.74 M/mm3 (3.65-5.03); Red Cell Distribution Width 19.1 % (13.2-15.2)
[2018-07-22 22:41] LABS: Alanine Aminotransferase 20 units/L (7-56); Albumin 4.2 g/dL (3.9-5); BUN/Creatinine Ratio 8; Blood Urea Nitrogen 4 mg/dL (7-17); Calcium 9.4 mg/dL (8.4-10.2); Hemolysis Index 2
--- NOTE | 2018-07-22 23:02 | Emergency Department Report ---
ED Abdominal Pain HPI - General Chief Complaint: Abdominal Pain Stated Complaint: ABD PAIN Time Seen by Provider: 07/22/18 23:01 Source: patient Mode of arrival: Ambulatory Limitations: No Limitations - History of Present Illness Initial Comments: Patient c/o Epigastric abdominal pain for 3 weeks. 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 Patient also said she has nausea, vomiting and diarrhea. MD Complaint: abdominal pain -: Gradual, week(s) (3) Location: epigastric Radiation: back Migration to: no migration Severity: moderate Severity scale (0 -10): 7 Quality: sharp Consistency: constant Improves With: nothing Worsens With: nothing Associated Symptoms: nausea, vomiting, diarrhea. denies: fever, chills - Related Data LMP (females 10-50): unknown Previous Rx's Medication Instructions Recorded Last Taken Type HYDROcodone/ACETAMINOPHEN [Beggs 1 each PO Q4-6H PRN #20 tablet 03/30/18 Unknown Rx 7.5-325 Tablet] HYDROcodone/APAP 5-325 [Beggs 1 each PO Q6HR PRN #10 tablet 07/02/18 Unknown Rx 5/325] Ondansetron [Zofran ODT TAB] 4 mg PO Q8HR PRN #10 tab.rapdis 07/02/18 Unknown Rx Polyethylene Glycol 3350 [Miralax 17 gm PO BID #10 packet 07/07/18 Unknown Rx 3350] Allergies Allergy/AdvReac Type Severity Reaction Status Date / Time No Known Allergies Allergy Unverified 03/30/18 10:35 ED Review of Systems ROS: Stated complaint: ABD PAIN Other details as noted in HPI Comment: All other systems reviewed and negative Constitutional: denies: chills, fever Eyes: denies: eye pain ENT: denies: ear pain, throat pain Respiratory: denies: cough, orthopnea, shortness of breath Cardiovascular: denies: chest pain, palpitations, dyspnea on exertion, orthopnea , syncope Endocrine: no symptoms reported Gastrointestinal: abdominal pain, nausea, vomiting, diarrhea. denies: constipation, hematemesis, melena, hematochezia Genitourinary: denies: urgency, dysuria, frequency Musculoskeletal: back pain Skin: denies: rash, lesions Neurological: denies: headache, weakness, numbness, paresthesias Psychiatric: denies: anxiety, depression Hematological/Lymphatic: denies: easy bleeding, easy bruising ED Past Medical Hx - Past Medical History Previous Medical History?: Yes Additional medical history: pancreatitis, uterine fibroids. alcohol abuse - Surgical History Past Surgical History?: No - Social History Smoking Status: Current Every Day Smoker Substance Use Type: None - Medications Home Medications: Home Medications Medication Instructions Recorded Confirmed Last Taken Type HYDROcodone/ACETAMINOPHEN [Beggs 1 each PO Q4-6H PRN #20 tablet 03/30/18 Unknown Rx 7.5-325 Tablet] HYDROcodone/APAP 5-325 [Beggs 1 each PO Q6HR PRN #10 tablet 07/02/18 Unknown Rx 5/325] Ondansetron [Zofran ODT TAB] 4 mg PO Q8HR PRN #10 tab.rapdis 07/02/18 Unknown Rx Polyethylene Glycol 3350 [Miralax 17 gm PO BID #10 packet 07/07/18 Unknown Rx 3350] ED Physical Exam - General Limitations: No Limitations General appearance: alert, in no apparent distress - Head Head exam: Present: atraumatic, normocephalic, normal inspection - Eye Eye exam: Present: normal appearance, PERRL, EOMI Pupils: Present: normal accommodation - ENT ENT exam: Present: normal exam, normal orophraynx, mucous membranes moist - Neck Neck exam: Present: normal inspection, full ROM. Absent: tenderness - Respiratory Respiratory exam: Present: normal lung sounds bilaterally. Absent: respiratory distress, wheezes, rales, rhonchi, stridor - Cardiovascular Cardiovascular Exam: Present: regular rate, normal rhythm, normal heart sounds - GI/Abdominal GI/Abdominal exam: Present: soft, tenderness (epigastric), normal bowel sounds. Absent: distended, guarding, rebound, rigid - Extremities Exam Extremities exam: Present: normal inspection, full ROM, normal capillary refill. Absent: tenderness - Back Exam Back exam: Present: normal inspection, full ROM. Absent: tenderness, CVA tenderness (R), CVA tenderness (L) - Neurological Exam Neurological exam: Present: alert, oriented X3, CN II-XII intact, normal gait - Psychiatric Psychiatric exam: Present: normal affect, normal mood - Skin Skin exam: Present: warm, dry, intact, normal color. Absent: rash ED Course Vital Signs 07/22/18 07/22/18 07/22/18 20:47 20:48 23:50 Temperature 98.5 F 98.2 F Pulse Rate 104 H 104 H 74 Respiratory 18 16 Rate Blood Pressure 128/86 Blood Pressure 121/78 [Left] O2 Sat by Pulse 98 98 98 Oximetry 07/22/18 07/23/18 07/23/18 23:54 00:00 00:30 Temperature Pulse Rate Respiratory Rate Blood Pressure 121/78 121/81 Blood Pressure [Left] O2 Sat by Pulse 99 100 100 Oximetry 07/23/18 07/23/18 07/23/18 01:00 01:30 02:00 Temperature Pulse Rate Respiratory Rate Blood Pressure 120/81 121/78 118/81 Blood Pressure [Left] O2 Sat by Pulse 99 97 99 Oximetry - Consultations Consultation #1: 07/23/18 03:24 I consulted the hospitalist fitness consultant Dr Hagan who will admit patient. ED Medical Decision Making - Lab Data Result diagrams: 07/22/18 22:01 07/22/18 22:01 Lab Results 07/22/18 07/22/18 07/22/18 Range/Units 17:00 22:01 22:01 WBC 7.3 (4.5-11.0) K/mm3 RBC 4.74 (3.65-5.03) M/mm3 Hgb 13.1 (10.1-14.3) gm/dl Hct 39.9 (30.3-42.9) % MCV 84 (79-97) fl MCH 28 (28-32) pg MCHC 33 (30-34) % RDW 19.1 H (13.2-15.2) % Plt Count 491 H (140-440) K/mm3 Lymph % (Auto) 26.6 (13.4-35.0) % [place] % (Auto) 9.8 H (0.0-7.3) % Eos % (Auto) 8.5 H (0.0-4.3) % Baso % (Auto) 1.1 (0.0-1.8) % Lymph # 1.9 (1.2-5.4) K/mm3 [place] # 0.7 (0.0-0.8) K/mm3 Eos # 0.6 H (0.0-0.4) K/mm3 Baso # 0.1 (0.0-0.1) K/mm3 Seg Neutrophils % 54.0 (40.0-70.0) % Seg Neutrophils # 3.9 (1.8-7.7) K/mm3 Sodium 136 L (137-145) mmol/L Potassium 3.0 L (3.6-5.0) mmol/L Chloride 96.3 L (98-107) mmol/L Carbon Dioxide 20 L (22-30) mmol/L Anion Gap 23 mmol/L BUN 4 L (7-17) mg/dL Creatinine 0.5 L (0.7-1.2) mg/dL Estimated GFR > 60 ml/min BUN/Creatinine Ratio 8 % Glucose 78 (65-100) mg/dL Calcium 9.4 (8.4-10.2) mg/dL Total Bilirubin 0.30 (0.1-1.2) mg/dL AST 15 (5-40) units/L ALT 20 (7-56) units/L Alkaline Phosphatase 68 (35-129) units/L Total Protein 7.7 (6.3-8.2) g/dL Albumin 4.2 (3.9-5) g/dL Albumin/Globulin Ratio 1.2 % HCG, Qual (Negative) Urine Color Yellow (Yellow) Urine Turbidity Clear (Clear) Urine pH 5.0 (5.0-7.0) Ur Specific [place] 1.016 (1.003-1.030) Urine Protein 30 mg/dl (Negative) mg/dL Urine Glucose (UA) Neg (Negative) mg/dL Urine Ketones 80 (Negative) mg/dL Urine Blood Lg (Negative) Urine Nitrite Neg (Negative) Urine Bilirubin Neg (Negative) Urine Urobilinogen < 2.0 (<2.0) mg/dL Ur Leukocyte Esterase Neg (Negative) Urine WBC (Auto) 3.0 (0.0-6.0) /HPF Urine RBC (Auto) 21.0 (0.0-6.0) /HPF U Epithel Cells (Auto) < 1.0 (0-13.0) /HPF Urine Mucus Few /HPF 07/22/18 Range/Units 22:01 WBC (4.5-11.0) K/mm3 RBC (3.65-5.03) M/mm3 Hgb (10.1-14.3) gm/dl Hct (30.3-42.9) % MCV (79-97) fl MCH (28-32) pg MCHC (30-34) % RDW (13.2-15.2) % Plt Count (140-440) K/mm3 Lymph % (Auto) (13.4-35.0) % [place] % (Auto) (0.0-7.3) % Eos % (Auto) (0.0-4.3) % Baso % (Auto) (0.0-1.8) % Lymph # (1.2-5.4) K/mm3 [place] # (0.0-0.8) K/mm3 Eos # (0.0-0.4) K/mm3 Baso # (0.0-0.1) K/mm3 Seg Neutrophils % (40.0-70.0) % Seg Neutrophils # (1.8-7.7) K/mm3 Sodium (137-145) mmol/L Potassium (3.6-5.0) mmol/L Chloride (98-107) mmol/L Carbon Dioxide (22-30) mmol/L Anion Gap mmol/L BUN (7-17) mg/dL Creatinine (0.7-1.2) mg/dL Estimated GFR ml/min BUN/Creatinine Ratio % Glucose (65-100) mg/dL Calcium (8.4-10.2) mg/dL Total Bilirubin (0.1-1.2) mg/dL AST (5-40) units/L ALT (7-56) units/L Alkaline Phosphatase (35-129) units/L Total Protein (6.3-8.2) g/dL Albumin (3.9-5) g/dL Albumin/Globulin Ratio % HCG, Qual Negative (Negative) Urine Color (Yellow) Urine Turbidity (Clear) Urine pH (5.0-7.0) Ur Specific [place] (1.003-1.030) Urine Protein (Negative) mg/dL Urine Glucose (UA) (Negative) mg/dL Urine Ketones (Negative) mg/dL Urine Blood (Negative) Urine Nitrite (Negative) Urine Bilirubin (Negative) Urine Urobilinogen (<2.0) mg/dL Ur Leukocyte Esterase (Negative) Urine WBC (Auto) (0.0-6.0) /HPF Urine RBC (Auto) (0.0-6.0) /HPF U Epithel Cells (Auto) (0-13.0) /HPF Urine Mucus /HPF - Radiology Data Radiology results: report reviewed, image reviewed Acute on chronic pancreatitis. 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 She has nausea with vomiting and requiring IV pain medication. Will admit for pain control and further management. Critical Care Time: Yes Critical care time in (mins) excluding proc time.: 55 Critical care attestation.: If time is entered above; I have spent that time in minutes in the direct care of this critically ill patient, excluding procedure time. ED Disposition Clinical Impression: Nausea, vomiting and diarrhea, Hypokalemia Abdominal pain Qualifiers: Abdominal location: epigastric Qualified Code(s): R10.13 - Epigastric pain Acute alcoholic pancreatitis Qualifiers: Acute pancreatitis complication: unspecified Qualified Code(s): K85.20 - Alcohol induced acute pancreatitis without necrosis or infection Disposition: OP ADMIT IP TO THIS HOSP Is pt being admited?: Yes Does the pt Need Aspirin: No Condition: Stable Instructions: Abdominal Pain (ED) Referrals: PRIMARY [facility] [Primary Care Provider] - 3-5 Days Time of Disposition: 03:23
[2018-07-22] MEDS ORDERED: MORPHINE IV ONE (23:11)
[2018-07-22] MEDS ORDERED: ZOFRAN IV ONE (23:12)
[2018-07-22 23:24] LABS: Bilirubin,Urine NEG (Negative); Blood,Urine LG (Negative); Color,Urine Yellow (Yellow); Mucus,Urine FEW /HPF; Urobilinogen,Urine < 2.0 mg/dL (<2.0)
[2018-07-22 23:39] LABS: INR 1.05 (0.87-1.13)
[2018-07-22 23:42] LABS: Lipase 280 units/L (13-60)
[2018-07-22] MEDS ORDERED: KCL 10MEQ/100ML 10 MEQ/100 ML BAG IV ONE (23:44)
[2018-07-22] MEDS ORDERED: K-DUR PO ONE (23:45)
--- NOTE | 2018-07-23 03:19 | Cat Scan Report ---
FINAL REPORT PROCEDURE: CT ABDOMEN PELVIS W CON TECHNIQUE: Computerized axial tomography of the abdomen and pelvis was performed after the IV injection of iodinated nonionic contrast. HISTORY: abdominal pain COMPARISON: No prior studies are available for comparison. FINDINGS: Visualized lower thorax: No significant abnormality. Liver: Normal size and attenuation. Spleen: Normal size and attenuation. Gallbladder and biliary system: Normal. Pancreas: Demonstrates numerous calcifications. Pancreatic duct is dilated. There is mild peripancreatic edema. Findings suggest acute on chronic pancreatitis. There is no mass, abscess or pseudocyst.. Adrenals: Normal. Kidneys: Normal. GI tract: There is no bowel obstruction, colitis or enteritis. The appendix is normal.. Lymph nodes and mesentery: Normal. Vasculature: Normal. Bladder: Normal. Reproductive organs: Uterus is unremarkable. There is a complex fatty mass in the right adnexal region measuring 5.7 centimeters in diameter suggesting a dermoid.. Peritoneum: There is no ascites or free air, abscess or adenopathy.. Musculoskeletal structures: No significant abnormality. Other: None. IMPRESSION: Suspected acute on chronic pancreatitis. There is no pancreatic mass, abscess or pseudocyst.. There is no bowel obstruction, colitis or enteritis. The appendix is normal.. Uterus is unremarkable. There is a complex fatty mass in the right adnexal region measuring 5.7 centimeters in diameter suggesting a dermoid.. There is no ascites or free air, abscess or adenopathy..
[2018-07-23] MEDS ORDERED: SUBLIMAZE IV ONE (03:21)
[2018-07-23] MEDS ORDERED: ZOFRAN IV PRN (03:56)
[2018-07-23] MEDS ORDERED: TYLENOL PO PRN (03:57)
[2018-07-23] MEDS ORDERED: VITAMIN B-1 100 MG, FOLVITE 1 MG, INFUVITE 10 ML in NACL 0.9% 1000 ML 1,000 ML IV ONE (04:00)
[2018-07-23] MEDS ORDERED: NACL 0.9% 1000 ML 1,000 ML IV SCH (04:00)
--- NOTE | 2018-07-23 04:54 | History and Physical Report ---
CHIEF COMPLAINT: Abdominal pain. Other complaint include nausea, vomiting and diarrhea. HISTORY OF PRESENT ILLNESS: The patient is a 33-year-old female with history of chronic pancreatitis due to alcohol, who has been having abdominal pain on and off going on for about 3 weeks. Pain is in the epigastric area and radiates to the back and sides and is associated with nausea, vomiting and diarrhea. She has no history of fever. No history of chills. The patient says she has been taking ibuprofen that causes temporary relief of pain, but said that pain comes back. The patient stated she had last alcohol drink about 3 weeks ago. There is no history of shortness of breath or chest pain. PAST MEDICAL HISTORY: Pertinent for pancreatitis, uterine fibroid, alcohol abuse. PAST SURGICAL HISTORY: Unremarkable. FAMILY HISTORY: Noncontributory. SOCIAL HISTORY: The patient drinks alcohol, smokes cigarettes, does not use illicit drugs. MEDICATIONS: The patient's medications include [place] 7.5/325 mg 1 by mouth every 4-6 hours as needed for pain. Also, the patient is on Zofran sublingual 4 mg every 8 hours as needed for nausea and vomiting and MiraLax 17 grams by mouth twice daily as needed for constipation. The patient is also on [id number] non-steroidal anti-inflammatory agent. ALLERGIES: There are no known drug allergies. REVIEW OF SYSTEMS: CONSTITUTIONAL: There is no fever, no chills, no diaphoresis. HEENT: There is no headache or sore throat. CARDIOVASCULAR SYSTEM: There is no chest pain or orthopnea. RESPIRATORY: There is no shortness of breath or cough. GASTROINTESTINAL SYSTEM: Abdominal pain is present. Nausea, vomiting and diarrhea is present. No constipation. NEUROLOGICAL SYSTEM: There is no numbness, no dizziness, no altered mental status. MUSCULOSKELETAL: There is no joint pain or swelling. DERMATOLOGICAL: There is no skin rash or itching. GENITOURINARY: There is no dysuria, hematuria or flank pain. Rest of system review is normal. PHYSICAL EXAMINATION: GENERAL: At the time of exam, the patient was found to be alert, oriented x 3, and not in acute distress. VITAL SIGNS: At the initial time of presentation shows temperature of 98.5 degrees Fahrenheit, pulse of 108, respirations 18, blood pressure 128/86, O2 sat of 98% on room air. HEENT: Showed pupils to be equal, round, reactive to light and accommodating. Extraocular muscles are intact. NECK: Supple with no JVD or carotid bruit. CARDIOVASCULAR SYSTEM: Show normal first and second heart sounds with no gallops or murmurs. RESPIRATORY SYSTEM: Show good air entry on both sides of the lungs with no abnormal breath sounds. GASTROINTESTINAL SYSTEM: Show abdomen to be full, soft with epigastric tenderness, but no rebound tenderness, no rigidity, no guarding. Bowel sounds are hypoactive. NEUROLOGIC SYSTEM: Showed no focal deficit. MUSCULOSKELETAL SYSTEM: Show no joint swelling or tenderness. DERMATOLOGICAL SYSTEM: Show no skin rash. GENITOURINARY: Showing no costovertebral angle tenderness. PERTINENT LABORATORY DATA AND IMAGING STUDIES: The patient had CT of the abdomen and pelvis with contrast done that shows acute on chronic pancreatitis with no pancreatic mass, abscess or pseudocyst and there is no bowel obstruction found. There is also no colitis or enteritis and the appendix is normal. There is finding of complex fatty mass in the right adnexal region measuring 5.7 cm in diameter suggesting a dermoid according to the radiologist. No ascites or free air or abscess or adenopathy was found. Lab results: The patient has CBC done with normal white count, normal hemoglobin and normal hematocrit with CBC differential showing elevated monocyte count of 9.8% and elevated eosinophil count of 8.5%. The patient's chemistry show low sodium of 136, low potassium of 3.0 with low chloride of 96.5 and unremarkable renal function test. The patient's amylase level is high with a value of 171 and lipase level is high with a value of 280. Urine test is negative. Urinalysis is remarkable. DIAGNOSES: 1. Acute on chronic pancreatitis. 2. Hypokalemia. 3. Dermoid found on CT of the abdomen. PLAN: 1. The patient will be admitted to medical/surgical jolly. 2. The patient will remain n.p.o. and will have basic metabolic panel and lipase level checked this morning. 3. The patient will be on IV banana bag made up of thiamine 100 mg with folic acid 1 mg and 1 amp of multivitamin and 2 gram of magnesium sulfate put in 1 liter of normal saline that will run at 150 mL an hour. 4. The patient will be on IV morphine 2 mg every 3 hours as needed for pain and will be on IV Zofran 4 mg every 6 hours for nausea and vomiting. 5. The patient's DVT prophylaxis will be through heparin 5000 units subcutaneous q. 12 h. 6. The patient will be on Tylenol 650 mg by mouth every 4 hours for fever and headache. The patient will have lipid panel done in the morning. JOB# [id number] OCN/NTS
[2018-07-23] MEDS ORDERED: MORPHINE ONE (05:19)
[2018-07-23] MEDS: MORPHINE IV PRN ×5 (05:20→21:55)
[2018-07-23 07:33] LABS: BUN/Creatinine Ratio 8; Blood Urea Nitrogen 3 mg/dL (7-17); Chol/HDL Ratio 4.91 %; HDL Cholesterol 24 mg/dL (40-59); Hemolysis Index 7; LDL Cholesterol,Direct 84 mg/dL (50-130); Lipase 137 units/L (13-60)
[2018-07-23] MEDS: HEPARIN SUB-Q SCH ×2 (09:07→21:54)
--- NOTE | 2018-07-23 12:38 | Progress Note ---
Assessment and Plan Assessment and plan: Acute alcoholic pancreatitis. Lipase has decreased. We will start to advance diet with clear liquids. Continue pain control, IV fluid hydration and supportive care. Hypokalemia. Replete potassium. EtOH abuse. Patient has been counseled on cessation. History Interval history: Patient complains of epigastric pain. Hospitalist Physical - Constitutional Vitals: Temp Pulse Resp BP Pulse Ox 98.2 F 74 16 110/88 99 07/22/18 23:50 07/22/18 23:50 07/22/18 23:50 07/23/18 05:00 07/23/18 05:00 General appearance: Present: no acute distress, well-nourished - EENT Eyes: Present: PERRL, EOM intact ENT: hearing intact, clear oral mucosa, dentition normal - Neck Neck: Present: supple, normal ROM - Respiratory Respiratory effort: normal Respiratory: bilateral: CTA - Cardiovascular Rhythm: regular Heart Sounds: Present: S1 & S2. Absent: gallop, rub - Extremities Extremities: no ischemia, No edema, Full ROM - Abdominal General gastrointestinal: soft, tender, non-distended, normal bowel sounds Localized gastrointestinal: tender: diffuse (mild) - Integumentary Integumentary: Present: clear, warm, dry - Neurologic Neurologic: CNII-XII intact, moves all extremities Results - Labs CBC & Chem 7: 07/22/18 22:01 07/23/18 06:29 Labs: Laboratory Last Values WBC 7.3 K/mm3 (4.5-11.0) 07/22/18 22:01 RBC 4.74 M/mm3 (3.65-5.03) 07/22/18 22:01 Hgb 13.1 gm/dl (10.1-14.3) 07/22/18 22:01 Hct 39.9 % (30.3-42.9) 07/22/18 22:01 MCV 84 fl (79-97) 07/22/18 22:01 MCH 28 pg (28-32) 07/22/18 22:01 MCHC 33 % (30-34) 07/22/18 22:01 RDW 19.1 % (13.2-15.2) H 07/22/18 22:01 Plt Count 491 K/mm3 (140-440) H 07/22/18 22:01 Lymph % (Auto) 26.6 % (13.4-35.0) 07/22/18 22:01 [place] % (Auto) 9.8 % (0.0-7.3) H 07/22/18 22:01 Eos % (Auto) 8.5 % (0.0-4.3) H 07/22/18 22:01 Baso % (Auto) 1.1 % (0.0-1.8) 07/22/18 22:01 Lymph # 1.9 K/mm3 (1.2-5.4) 07/22/18 22:01 [place] # 0.7 K/mm3 (0.0-0.8) 07/22/18 22:01 Eos # 0.6 K/mm3 (0.0-0.4) H 07/22/18 22:01 Baso # 0.1 K/mm3 (0.0-0.1) 07/22/18 22:01 Seg Neutrophils % 54.0 % (40.0-70.0) 07/22/18 22:01 Seg Neutrophils # 3.9 K/mm3 (1.8-7.7) 07/22/18 22:01 PT 14.2 Sec. (12.2-14.9) 07/22/18 23:16 INR 1.05 (0.87-1.13) 07/22/18 23:16 Sodium 137 mmol/L (137-145) 07/23/18 06:29 Potassium 3.7 mmol/L (3.6-5.0) D 07/23/18 06:29 Chloride 104.8 mmol/L (98-107) 07/23/18 06:29 Carbon Dioxide 22 mmol/L (22-30) 07/23/18 06:29 Anion Gap 14 mmol/L 07/23/18 06:29 BUN 3 mg/dL (7-17) L 07/23/18 06:29 Creatinine 0.4 mg/dL (0.7-1.2) L 07/23/18 06:29 Estimated GFR > 60 ml/min 07/23/18 06:29 BUN/Creatinine Ratio 8 % 07/23/18 06:29 Glucose 82 mg/dL (65-100) 07/23/18 06:29 Calcium 8.0 mg/dL (8.4-10.2) L 07/23/18 06:29 Total Bilirubin 0.30 mg/dL (0.1-1.2) 07/22/18 22:01 AST 15 units/L (5-40) 07/22/18 22:01 ALT 20 units/L (7-56) 07/22/18 22:01 Alkaline Phosphatase 68 units/L (35-129) 07/22/18 22:01 Total Protein 7.7 g/dL (6.3-8.2) 07/22/18 22: Albumin 4.2 g/dL (3.9-5) 07/22/18 22: Albumin/Globulin Ratio 1.2 % 07/22/18 22: Triglycerides 57 mg/dL (2-149) 07/23/18 06: Cholesterol 118 mg/dL (50-199) 07/23/18 06:29 LDL Cholesterol Direct 84 mg/dL (50-130) 07/23/18 06:29 HDL Cholesterol 24 mg/dL (40-59) L 07/23/18 06:29 Cholesterol/HDL Ratio 4.91 % 07/23/18 06:29 Amylase 171 units/L (27-131) H 07/22/18 23:16 Lipase 137 units/L (13-60) H 07/23/18 06:29 HCG, Qual Negative (Negative) 07/22/18 23:16 Urine Color Yellow (Yellow) 07/22/18 17:00 Urine Turbidity Clear (Clear) 07/22/18 17:00 Urine pH 5.0 (5.0-7.0) 07/22/18 17:00 Ur Specific [place] 1.016 (1.003-1.030) 07/22/18 17:00 Urine Protein 30 mg/dl mg/dL (Negative) 07/22/18 17:00 Urine Glucose (UA) Neg mg/dL (Negative) 07/22/18 17:00 Urine Ketones 80 mg/dL (Negative) 07/22/18 17:00 Urine Blood Lg (Negative) 07/22/18 17:00 Urine Nitrite Neg (Negative) 07/22/18 17:00 Urine Bilirubin Neg (Negative) 07/22/18 17:00 Urine Urobilinogen < 2.0 mg/dL (<2.0) 07/22/18 17:00 Ur Leukocyte Esterase Neg (Negative) 07/22/18 17:00 Urine WBC (Auto) 3.0 /HPF (0.0-6.0) 07/22/18 17:00 Urine RBC (Auto) 21.0 /HPF (0.0-6.0) 07/22/18 17:00 U Epithel Cells (Auto) < 1.0 /HPF (0-13.0) 07/22/18 17:00 Urine Mucus Few /HPF 07/22/18 17:00
--- NOTE | 2018-07-24 09:22 | Discharge Summary ---
Providers - Providers Date of Admission: 07/23/18 03:51 Date of discharge: 07/24/18 Attending physician: REJI DONG Primary care physician: LOOM TUNER Hospitalization Reason for admission: pancreatitis Condition: Stable Hospital course: This is a 33-year-old female presented through the emergency department with complaints of abdominal pain. The patient underwent CT scan of the abdomen and pelvis which revealed acute on chronic pancreatitis but no pancreatic mass, abscess or pseudocyst. No bowel obstruction, colitis or enteritis. The patient was admitted with diagnoses of acute alcoholic pancreatitis. The patient's lipase was found to be elevated at 280 and return to her near normal range at the time of discharge. The patient's diet was later advanced which she tolerated. Dedicated discharge time 32 minutes. Disposition: TO HOME OR SELFCARE Time spent for discharge: 32 - Discharge Diagnoses (1) Abdominal pain Status: Acute Qualifiers: Abdominal location: epigastric Qualified Code(s): R10.13 - Epigastric pain (2) Acute alcoholic pancreatitis Status: Acute Qualifiers: Acute pancreatitis complication: unspecified Qualified Code(s): K85.20 - Alcohol induced acute pancreatitis without necrosis or infection (3) Hypokalemia Status: Acute (4) Nausea, vomiting and diarrhea Status: Acute Core Measure Documentation - Palliative Care Palliative Care/ Comfort Measures: Not Applicable - Core Measures Any of the following diagnoses?: none Exam - Constitutional Vitals: Temp Pulse Resp BP Pulse Ox 98.4 F 80 18 101/66 96 07/24/18 05:48 07/24/18 05:48 07/24/18 05:48 07/24/18 05:48 07/24/18 05:48 General appearance: Present: no acute distress, well-nourished - EENT Eyes: Present: PERRL ENT: hearing intact, clear oral mucosa - Neck Neck: Present: supple, normal ROM - Respiratory Respiratory effort: normal Respiratory: bilateral: CTA - Cardiovascular Heart Sounds: Present: S1 & S2. Absent: rub, click - Extremities Extremities: pulses symmetrical, No edema Peripheral Pulses: within normal limits - Abdominal General gastrointestinal: Present: soft, non-tender, non-distended, normal bowel sounds Female genitourinary: Present: normal - Integumentary Integumentary: Present: clear, warm, dry - Musculoskeletal Musculoskeletal: gait normal, strength equal bilaterally - Psychiatric Psychiatric: appropriate mood/affect, intact judgment & insight - Neurologic Neurologic: CNII-XII intact, moves all extremities Plan Activity: no restrictions Weight Bearing Status: Full Weight Bearing Diet: regular Follow up with: PRIMARY CARE, [Primary Care Provider] - 3-5 Days Prescriptions: HYDROcodone/ACETAMINOPHEN [[place] 7.5-325 Tablet] 1 each PO Q4-6H PRN #20 tablet PRN Reason: Pain Ondansetron [Zofran ODT TAB] 4 mg PO Q8HR PRN #10 tab.rapdis PRN Reason: Nausea And Vomiting
[2018-07-24] MEDS: HEPARIN SUB-Q SCH (10:00)
[2018-07-24] MEDS: MORPHINE IV PRN (10:19)
[2018-07-24 13:12] VITALS: BP 107/63
== END 2018-07-24 15:00 | disposition home or self-care (01) | DRG 440 ==
LOC: ED 20:40 → 3A 07-23 03:51
PROVIDERS: ADMIT Internal Medicine; ATTEND Hospitalist
DX: K85.20 Alcohol induced acute pancreatitis without necrosis or infection (principal); E87.6 Hypokalemia; K86.0 Alcohol-induced chronic pancreatitis; F17.210 Nicotine dependence, cigarettes, uncomplicated; F10.10 Alcohol abuse, uncomplicated; Z71.41 Alcohol abuse counseling and surveillance of alcoholic; Z79.899 Other long term (current) drug therapy
CPT/HCPCS: 36415; 74177; 80048; 80053; 80061; 81001; 82150; 83690; 84703; 85025; 85610; 96361; 96365; 96375; J1644; J2270; J2405; J3010; J3411; J3480; J7030; Q9967

== ENCOUNTER 2019-03-30 02:37 | Inpatient (IN) | payer SELFPAY ==
[2019-03-30 03:32] LABS: Bilirubin,Urine NEG (Negative); Blood,Urine LG (Negative); Mucus,Urine FEW /HPF; Urobilinogen,Urine < 2.0 mg/dL (<2.0)
[2019-03-30 03:33] LABS: Color,Urine Dark Yellow (Yellow); Protein,Urine 300 mg/dL mg/dL (Negative)
[2019-03-30 03:49] LABS: Basophils # (Auto) 0.1 K/mm3 (0.0-0.1); Basophils % (Auto) 0.8 % (0.0-1.8); Eosinophils # (Auto) 0.2 K/mm3 (0.0-0.4); Hematocrit 41.1 % (30.3-42.9); Lymphocytes # (Auto) 1.4 K/mm3 (1.2-5.4); Lymphocytes % (Auto) 20.1 % (13.4-35.0); Mean Corpuscular HGB Conc 34 % (30-34); Mean Corpuscular Volume 82 fl (79-97); Platelet Count 344 K/mm3 (140-440); Red Blood Count 4.99 M/mm3 (3.65-5.03); Red Cell Distribution Width 19.1 % (13.2-15.2)
[2019-03-30 04:27] LABS: Alanine Aminotransferase 58 units/L (7-56); BUN/Creatinine Ratio 13; Blood Urea Nitrogen 12 mg/dL (7-17); Calcium 11.1 mg/dL (8.4-10.2); Hemolysis Index 5
[2019-03-30] MEDS ORDERED: ZOFRAN ONE ×2 (05:17→13:59)
[2019-03-30] MEDS ORDERED: NACL 0.9% 1000 ML 1,000 ML ONE (05:17)
[2019-03-30] MEDS ORDERED: DILAUDID ONE (05:17)
[2019-03-30] MEDS ORDERED: NACL 0.9% 1000 ML 1,000 ML IV ONE ×2 (05:18→08:30)
[2019-03-30] MEDS ORDERED: DILAUDID IV ONE (05:18)
[2019-03-30] MEDS ORDERED: ZOFRAN IV ONE ×3 (05:18→14:00)
--- NOTE | 2019-03-30 05:18 | Event Note ---
Date: 03/30/19 Medical screening note: This is a 34-year-old female, with a reported history of alcohol associated pancreatitis, evaluated at this hospital me past for acute on chronic pancreatitis, presents to the emergency room with a complaint of nontraumatic abdominal pain and back pain, nausea and vomiting, reports it feels similar to prior episodes of pancreatitis. Consumed alcohol over the weekend. Afebrile, but tachycardic. We will treat her symptoms. Vital Signs 03/30/19 03/30/19 02:41 04:31 Temperature 98.3 F Pulse Rate 124 H 121 H Respiratory 18 15 Rate Blood Pressure 119/84 129/93 O2 Sat by Pulse 99 100 Oximetry Lab Results 03/30/19 03/30/19 03/30/19 Range/Units 02:55 02:55 02:55 WBC 6.8 (4.5-11.0) K/mm3 RBC 4.99 (3.65-5.03) M/mm3 Hgb 14.0 (10.1-14.3) gm/dl Hct 41.1 (30.3-42.9) % MCV 82 (79-97) fl MCH 28 (28-32) pg MCHC 34 (30-34) % RDW 19.1 H (13.2-15.2) % Plt Count 344 (140-440) K/mm3 Lymph % (Auto) 20.1 (13.4-35.0) % [place] % (Auto) 15.0 H (0.0-7.3) % Eos % (Auto) 3.0 (0.0-4.3) % Baso % (Auto) 0.8 (0.0-1.8) % Lymph # 1.4 (1.2-5.4) K/mm3 [place] # 1.0 H (0.0-0.8) K/mm3 Eos # 0.2 (0.0-0.4) K/mm3 Baso # 0.1 (0.0-0.1) K/mm3 Seg Neutrophils % 61.1 (40.0-70.0) % Seg Neutrophils # 4.2 (1.8-7.7) K/mm3 Sodium 135 L (137-145) mmol/L Potassium 3.7 (3.6-5.0) mmol/L Chloride 89.1 L (98-107) mmol/L Carbon Dioxide 22 (22-30) mmol/L Anion Gap 28 mmol/L BUN 12 (7-17) mg/dL Creatinine 0.9 (0.7-1.2) mg/dL Estimated GFR > 60 ml/min BUN/Creatinine Ratio 13 % Glucose 154 H (65-100) mg/dL Calcium 11.1 H (8.4-10.2) mg/dL Total Bilirubin 0.50 (0.1-1.2) mg/dL AST 30 (5-40) units/L ALT 58 H (7-56) units/L Alkaline Phosphatase 60 (35-129) units/L Total Protein 8.9 H (6.3-8.2) g/dL Albumin 5.0 (3.9-5) g/dL Albumin/Globulin Ratio 1.3 % HCG, Qual Negative (Negative) Urine Color (Yellow) Urine Turbidity (Clear) Urine pH (5.0-7.0) Ur Specific [place] (1.003-1.030) Urine Protein (Negative) mg/dL Urine Glucose (UA) (Negative) mg/dL Urine Ketones (Negative) mg/dL Urine Blood (Negative) Urine Nitrite (Negative) Urine Bilirubin (Negative) Urine Urobilinogen (<2.0) mg/dL Ur Leukocyte Esterase (Negative) Urine WBC (Auto) (0.0-6.0) /HPF Urine RBC (Auto) (0.0-6.0) /HPF U Epithel Cells (Auto) (0-13.0) /HPF Urine Mucus /HPF 03/30/19 Range/Units 03:00 WBC (4.5-11.0) K/mm3 RBC (3.65-5.03) M/mm3 Hgb (10.1-14.3) gm/dl Hct (30.3-42.9) % MCV (79-97) fl MCH (28-32) pg MCHC (30-34) % RDW (13.2-15.2) % Plt Count (140-440) K/mm3 Lymph % (Auto) (13.4-35.0) % [place] % (Auto) (0.0-7.3) % Eos % (Auto) (0.0-4.3) % Baso % (Auto) (0.0-1.8) % Lymph # (1.2-5.4) K/mm3 [place] # (0.0-0.8) K/mm3 Eos # (0.0-0.4) K/mm3 Baso # (0.0-0.1) K/mm3 Seg Neutrophils % (40.0-70.0) % Seg Neutrophils # (1.8-7.7) K/mm3 Sodium (137-145) mmol/L Potassium (3.6-5.0) mmol/L Chloride (98-107) mmol/L Carbon Dioxide (22-30) mmol/L Anion Gap mmol/L BUN (7-17) mg/dL Creatinine (0.7-1.2) mg/dL Estimated GFR ml/min BUN/Creatinine Ratio % Glucose (65-100) mg/dL Calcium (8.4-10.2) mg/dL Total Bilirubin (0.1-1.2) mg/dL AST (5-40) units/L ALT (7-56) units/L Alkaline Phosphatase (35-129) units/L Total Protein (6.3-8.2) g/dL Albumin (3.9-5) g/dL Albumin/Globulin Ratio % HCG, Qual (Negative) Urine Color Dark yellow (Yellow) Urine Turbidity Slightly-cloudy (Clear) Urine pH 6.0 (5.0-7.0) Ur Specific [place] 1.017 (1.003-1.030) Urine Protein 300 mg/dl (Negative) mg/dL Urine Glucose (UA) Neg (Negative) mg/dL Urine Ketones 80 (Negative) mg/dL Urine Blood Lg (Negative) Urine Nitrite Neg (Negative) Urine Bilirubin Neg (Negative) Urine Urobilinogen < 2.0 (<2.0) mg/dL Ur Leukocyte Esterase Neg (Negative) Urine WBC (Auto) 5.0 (0.0-6.0) /HPF Urine RBC (Auto) 4.0 (0.0-6.0) /HPF U Epithel Cells (Auto) 6.0 (0-13.0) /HPF Urine Mucus Few /HPF
[2019-03-30] MEDS ORDERED: D5/0.45NS 1,000 ML IV SCH (06:00)
--- NOTE | 2019-03-30 07:52 | Cat Scan Report ---
PROCEDURE: CT ABDOMEN PELVIS W CON TECHNIQUE: Computerized axial tomography of the abdomen and pelvis was performed after the IV inject ion of iodinated nonionic contrast. HISTORY: back pain, inc calcium, pacreatitis COMPARISONS: 07/23/2018, 03/30/2018. FINDINGS: Partially visualized intrathoracic contents are unremarkable. The pancreas appears edematous and shows heterogeneous enhancement without focal hypoenhancing segmen t. Diffuse coarse calcification. No peripancreatic fluid collection. The splenic vasculature is well- opacified/patent and normal in caliber. The liver, gallbladder, spleen, and adrenal glands are unrema rkable. Kidneys show no worrisome lesions, hydronephrosis, or calculi. Urinary bladder is unremarkable. Antev erted uterus. Right ovarian dermoid cyst measuring 6.1 x 3.7 cm on axial series 2, image 129 appears slightly larger compared to 2018 exams. Multiple pelvic phleboliths. No free fluid in the pelvis. Sma ll and large bowel are normal in caliber. Appendix is normal. No free air, free fluid, or lymphadenop athy identified. Aorta is normal in course and caliber. Superficial soft tissues are unremarkable. No acute or aggressive appearing skeletal findings. IMPRESSION: Chronic sequela of pancreatitis without evident complication (no adjacent fluid collection or splenic vascular abnormality.) No acute findings in the abdomen or pelvis. Right ovarian dermoid cyst measuring 6.1 x 3.7 cm appears larger compared to 2018 exam. Gynecology fo llow-up is recommended if not already established. This document is electronically signed by Tio Collins MD., March 30 2019 07:51:16 AM ET
[2019-03-30] MEDS ORDERED: MORPHINE IV ONE (08:30)
[2019-03-30] MEDS ORDERED: ROCEPHIN/NS 1 GM/50 ML 1 GM/50 ML BAG IV ONE ×2 (08:32→12:51)
--- NOTE | 2019-03-30 11:35 | Event Note ---
Date: 03/30/19 34 YO Female with ETOH Pancreatitis presents to ED for evaluation. Pt seen and evaluated in ED and found to have mildly elevated lipase level. Pt treated with IVF resuscitation therapy and supportive care. Pt medically optimized. Pt discharged home. Pt counseled regarding ETOH cessation. Pt instructed to F/U pcp 3-5 days, and to attend AA meeting. - General Limitations: No Limitations General appearance: alert, in no apparent distress - Head Head exam: Present: atraumatic, normocephalic - Eye Eye exam: Present: normal appearance. Absent: scleral icterus - ENT ENT exam: Present: mucous membranes moist - Neck Neck exam: Present: normal inspection - Respiratory Respiratory exam: Present: normal lung sounds bilaterally. Absent: respiratory distress - Cardiovascular Cardiovascular Exam: Present: regular rate, normal rhythm. Absent: systolic murmur, diastolic murmur, rubs, gallop - GI/Abdominal GI/Abdominal exam: Present: soft, normal bowel sounds. Absent: distended, tenderness, guarding, rebound, rigid - Extremities Exam Extremities exam: Present: normal inspection - Back Exam Back exam: Present: normal inspection - Neurological Exam Neurological exam: Present: alert, oriented X3, CN II-XII intact. Absent: motor sensory deficit - Psychiatric Psychiatric exam: Present: normal affect, normal mood - Skin Skin exam: Present: warm, dry, intact, normal color. Absent: rash
--- NOTE | 2019-03-30 11:55 | Emergency Department Report ---
ED General Adult HPI - General Chief complaint: Back Pain/Injury Stated complaint: ABD/BACK PAIN Time Seen by Provider: 03/30/19 06:13 Source: patient, EMS Mode of arrival: Ambulatory Limitations: No Limitations - History of Present Illness Initial comments: This is a 34-year-old female complains of bilateral leg pain with some nausea and vomiting for 3 days. He states that she drank alcohol on Wednesday and that her symptoms started on Wednesday. She has history of pancreatitis. She denies fever or chills. She denies any signs of GI bleeding. She has had some muscle cramping. -: Gradual, days(s) Location: back Radiation: non-radiation Severity scale (0 -10): 0 Quality: aching Consistency: intermittent Improves with: none Worsens with: none Associated Symptoms: denies other symptoms, nausea/vomiting Treatments Prior to Arrival: none - Related Data Home Medications Medication Instructions Recorded Confirmed Last Taken No Known Home Medications [No 03/30/19 03/30/19 Unknown Reported Home Medications] Allergies Allergy/AdvReac Type Severity Reaction Status Date / Time No Known Allergies Allergy Unverified 03/30/18 10:35 ED Review of Systems ROS: Stated complaint: ABD/BACK PAIN Other details as noted in HPI Constitutional: denies: chills, fever Eyes: denies: eye pain, eye discharge, vision change ENT: denies: ear pain, throat pain Respiratory: denies: cough, shortness of breath, wheezing Cardiovascular: denies: chest pain, palpitations Endocrine: no symptoms reported Gastrointestinal: denies: abdominal pain, nausea, diarrhea Genitourinary: denies: urgency, dysuria, discharge Musculoskeletal: back pain. denies: joint swelling, arthralgia Skin: denies: rash, lesions Neurological: denies: headache, weakness, paresthesias Psychiatric: denies: anxiety, depression Hematological/Lymphatic: denies: easy bleeding, easy bruising ED Past Medical Hx - Past Medical History Previous Medical History?: Yes Hx Congestive Heart Failure: No Hx Diabetes: No Hx Asthma: No Hx COPD: No Additional medical history: pancreatitis, uterine fibroids. alcohol abuse - Surgical History Past Surgical History?: No - Social History Smoking Status: Current Every Day Smoker Substance Use Type: None - Medications Home Medications: Home Medications Medication Instructions Recorded Confirmed Last Taken Type No Known Home Medications [No 03/30/19 03/30/19 Unknown History Reported Home Medications] ED Physical Exam - General Limitations: No Limitations General appearance: alert, in no apparent distress - Head Head exam: Present: atraumatic, normocephalic - Eye Eye exam: Present: normal appearance. Absent: scleral icterus - ENT ENT exam: Present: mucous membranes moist - Neck Neck exam: Present: normal inspection - Respiratory Respiratory exam: Present: normal lung sounds bilaterally. Absent: respiratory distress - Cardiovascular Cardiovascular Exam: Present: regular rate, normal rhythm. Absent: systolic murmur, diastolic murmur, rubs, gallop - GI/Abdominal GI/Abdominal exam: Present: soft, normal bowel sounds. Absent: distended, tenderness, guarding, rebound, rigid - Extremities Exam Extremities exam: Present: normal inspection - Back Exam Back exam: Present: normal inspection - Neurological Exam Neurological exam: Present: alert, oriented X3, CN II-XII intact. Absent: motor sensory deficit - Psychiatric Psychiatric exam: Present: normal affect, normal mood - Skin Skin exam: Present: warm, dry, intact, normal color. Absent: rash ED Course Vital Signs 03/30/19 03/30/19 03/30/19 02:41 04:31 04:45 Temperature 98.3 F Pulse Rate 124 H 121 H 104 H Respiratory 18 15 16 Rate Blood Pressure 119/84 129/93 124/92 Blood Pressure [Left] O2 Sat by Pulse 99 100 99 Oximetry 03/30/19 03/30/19 03/30/19 05:00 05:15 05:30 Temperature Pulse Rate 114 H 99 H Respiratory 15 11 L Rate Blood Pressure 112/83 112/83 107/77 Blood Pressure [Left] O2 Sat by Pulse 100 75 L 98 Oximetry 03/30/19 03/30/19 03/30/19 05:45 06:00 06:15 Temperature Pulse Rate 89 87 88 Respiratory 13 11 L 12 Rate Blood Pressure 107/77 104/73 104/73 Blood Pressure [Left] O2 Sat by Pulse 97 98 100 Oximetry 03/30/19 03/30/19 03/30/19 06:30 06:45 08:41 Temperature Pulse Rate 82 82 98 H Respiratory 17 12 13 Rate Blood Pressure 111/78 111/78 101/65 Blood Pressure [Left] O2 Sat by Pulse 100 100 Oximetry 03/30/19 03/30/19 08:49 08:50 Temperature 98.1 F Pulse Rate 87 Respiratory 13 Rate Blood Pressure Blood Pressure 112/72 [Left] O2 Sat by Pulse 99 Oximetry - Reevaluation(s) Reevaluation #1: Patient was given IV fluid. She was given Zofran. She was given a dose of ceft riaxone to cover the possibility of UTI. Urine culture was sent. Thyroid and parathyroid levels are sent. Discussed with hospitalist. Patient is admitted for further care and evaluation. 03/30/19 11:53 ED Medical Decision Making - Lab Data Result diagrams: 03/30/19 02:55 03/30/19 02:55 Laboratory Results - last 24 hr 03/30/19 03/30/19 03/30/19 02:55 02:55 02:55 WBC 6.8 RBC 4.99 Hgb 14.0 Hct 41.1 MCV 82 MCH 28 MCHC 34 RDW 19.1 H Plt Count 344 Lymph % (Auto) 20.1 [place] % (Auto) 15.0 H Eos % (Auto) 3.0 Baso % (Auto) 0.8 Lymph # 1.4 [place]y # 1.0 H Eos # 0.2 Baso # 0.1 Seg Neutrophils % 61.1 Seg Neutrophils # 4.2 Sodium 135 L Potassium 3.7 Chloride 89.1 L Carbon Dioxide 22 Anion Gap 28 BUN 12 Creatinine 0.9 Estimated GFR > 60 BUN/Creatinine Ratio 13 Glucose 154 H Calcium 11.1 H Magnesium Total Bilirubin 0.50 AST 30 ALT 58 H Alkaline Phosphatase 60 Total Creatine Kinase Total Protein 8.9 H Albumin 5.0 Albumin/Globulin Ratio 1.3 Lipase HCG, Qual Negative Urine Color Urine Turbidity Urine pH Ur Specific [place] Urine Protein Urine Glucose (UA) Urine Ketones Urine Blood Urine Nitrite Urine Bilirubin Urine Urobilinogen Ur Leukocyte Esterase Urine WBC (Auto) Urine RBC (Auto) U Epithel Cells (Auto) Urine Mucus 03/30/19 03/30/19 03:00 05:19 WBC RBC Hgb Hct MCV MCH MCHC RDW Plt Count Lymph % (Auto) [place] % (Auto) Eos % (Auto) Baso % (Auto) Lymph # [place] # Eos # Baso # Seg Neutrophils % Seg Neutrophils # Sodium Potassium Chloride Carbon Dioxide Anion Gap BUN Creatinine Estimated GFR BUN/Creatinine Ratio Glucose Calcium Magnesium 2.20 Total Bilirubin AST ALT Alkaline Phosphatase Total Creatine Kinase 51 Total Protein Albumin Albumin/Globulin Ratio Lipase 128 H HCG, Qual Urine Color Dark yellow Urine Turbidity Slightly-cloudy Urine pH 6.0 Ur Specific [place] 1.017 Urine Protein 300 mg/dl Urine Glucose (UA) Neg Urine Ketones 80 Urine Blood Lg Urine Nitrite Neg Urine Bilirubin Neg Urine Urobilinogen < 2.0 Ur Leukocyte Esterase Neg Urine WBC (Auto) 5.0 Urine RBC (Auto) 4.0 U Epithel Cells (Auto) 6.0 Urine Mucus Few - EKG Data -: EKG Interpreted by Me EKG shows normal: sinus rhythm, axis, intervals, QRS complexes, ST-T waves Rate: normal - EKG Data Interpretation: other - Radiology Data Radiology results: report reviewed (dermoid cyst) Critical care attestation.: If time is entered above; I have spent that time in minutes in the direct care of this critically ill patient, excluding procedure time. ED Disposition Clinical Impression: Hypercalcemia, Flank pain, Dermoid cyst Disposition: 09 OP ADMIT IP TO THIS HOSP Is pt being admited?: Yes Does the pt Need Aspirin: No Condition: Stable Referrals: JOHNNIE GALINDO MD [Primary Care Provider] - 3-5 Days Time of Disposition: 11:55
[2019-03-30 13:00] LABS: Free T4 (Free Thyroxine) 1.06 ng/dL (0.76-1.46)
[2019-03-30 14:59] VITALS: BP 111/79
== END 2019-03-30 14:51 | disposition home or self-care (01) | DRG 392 ==
LOC: ED 02:37 → 3A 12:11
PROVIDERS: ADMIT Internal Medicine; ATTEND Internal Medicine
DX: R10.9 Unspecified abdominal pain (principal); K86.1 Other chronic pancreatitis; E83.52 Hypercalcemia; F17.210 Nicotine dependence, cigarettes, uncomplicated; D36.9 Benign neoplasm, unspecified site
CPT/HCPCS: 36415; 74177; 80053; 81001; 82550; 83690; 83735; 83970; 84439; 84443; 84703; 85025; 93005; 93010; 96361; 96365; 96375; 96376; G0378; J0696; J1170; J2270; J2405; J7030; Q9967